=== PATIENT | female | born 1990 | race Caucasian/White ===

== ENCOUNTER → 2016-09-28 | Day surgery (SDC) | payer BC, OTHER | LOC: RAD 13:31 | PROVIDERS: ATTEND Orthopaedic Surgery | DX: M25.532 Pain in left wrist (principal); Z53.9 Procedure and treatment not carried out, unspecified reason ==

== ENCOUNTER → 2016-10-04 | Day surgery (SDC) | payer BC, OTHER | LOC: RAD 13:20 | PROVIDERS: ATTEND Orthopaedic Surgery | PROC: BP0 Imaging, Non-Axial Upper Bones, Plain Radiography (ICD-10-PCS; principal; 2016-10-04) | DX: M25.532 Pain in left wrist (principal) | CPT/HCPCS: 73222; 73115; 77002; A9576 ==

== ENCOUNTER → 2016-10-15 | Emergency (ER) | payer BC, OTHER ==
[~2016-10-15] MED LIST: LEVETIRACETAM 1000 MG/NACL-ISO 100 ML IV ONE
[2016-10-15 20:06] LABS: ABSOLUTE BASOPHILS # (AUTO) 0.1 10^3/uL (0.0-0.2); ABSOLUTE EOSINOPHILS # (AUTO) 0.1 10^3/uL (0.0-0.6); ABSOLUTE LYMPHOCYTES (AUTO) 1.5 10^3/uL (0.5-4.7); ABSOLUTE MONOCYTES (AUTO) 0.6 10^3/uL (0.1-1.4); ABSOLUTE NEUT (AUTO) 7.3 10^3/uL (1.7-8.2); BASOPHILS % (AUTO) 0.7 % (0-2); EOSINOPHILS % (AUTO) 0.8 % (0-6); HEMATOCRIT 41.5 % (36.0-47.0); HEMOGLOBIN 14.1 g/dL (12.0-15.5); HGB HCT DIFFERENCE 0.8; LYMPHOCYTES % (AUTO) 15.5 % (13-45); MEAN CORPUSCULAR VOLUME 91 fl (80-97); MONOCYTES % (AUTO) 6.6 % (3-13); RED BLOOD COUNT 4.55 10^6/uL (3.72-5.28); RED CELL DISTRIBUTION WIDTH 13.1 % (11.5-14.0); SEGMENTED NEUTROPHILS % (AUTO) 76.4 % (42-78); WHITE BLOOD COUNT 9.5 10^3/uL (4.0-10.5)
[2016-10-15 20:29] LABS: ALANINE AMINOTRANSFERASE 27 U/L (9-52); ALBUMIN 3.5 g/dL (3.5-5.0); ALKALINE PHOSPHATASE 43 U/L (38-126); ANION GAP 9 (5-19); ASPARTATE AMINO TRANSFERASE 18 U/L (14-36); BILIRUBIN,TOTAL 0.9 mg/dL (0.2-1.3); BLOOD UREA NITROGEN 9 mg/dL (7-20); CALCIUM 9.3 mg/dL (8.4-10.2); CARBON DIOXIDE 29 mmol/L (22-30); CHLORIDE 104 mmol/L (98-107); CREATININE RESULT 0.89 mg/dL (0.52-1.25); GLUCOSE 82 mg/dL (75-110); POTASSIUM 4.1 mmol/L (3.6-5.0); SODIUM 142.3 mmol/L (137-145); TOTAL PROTEIN 6.3 g/dL (6.3-8.2)
[2016-10-15 20:30] LABS: ALCOHOL < 10 mg/dL (NONE DETECTED)
--- NOTE | 2016-10-15 21:43 | ER Document Report ---
ED Seizure - General Mode of Arrival: Medic Information source: Relative - spouse TRAVEL OUTSIDE OF THE U.S. IN LAST 30 DAYS: No - HPI Patient complains to provider of: Other - see HPI note <LATRICIA CHAVIRA - Last Filed: 10/16/16 00:19> <BHAVNA RODRIGUEZ - Last Filed: 10/16/16 01:48> - General Chief Complaint: Seizure Stated Complaint: SEIZURE Notes: Patient is a 26-year-old female presenting to the emergency department for multiple seizure activity per her . Patient's states that the patient has had multiple seizure activity over the last couple of days. Patient 's states that she is on multiple seizure medications. Patient's states that she usually has this type of activity during her menstrual cycle; patient just ended her menstrual cycle. Patient states that the patient has been treated at [facility] for her seizure activity. Patient is allergic to tramadol. (LATRICIA CHAVIRA) - Related Data Allergies/Adverse Reactions: tramadol [Tramadol] Allergy (Verified 10/15/16 19:39) Seizures Past Medical History - General Information source: Relative - spouse - Social History Smoking Status: Unknown if Ever Smoked Family History: Malignancy, Other Neurological Medical History: Reports: Hx Migraine, Hx Seizures Psychiatric Medical History: Reports: Hx Depression Past Surgical History: Reports: Hx Oral Surgery - wisdom teeth - Immunizations Immunizations up to date: Yes Hx Diphtheria, Pertussis, Tetanus Vaccination: Yes <LATRICIA CHAVIRA - Last Filed: 10/16/16 00:19> Review of Systems - Review of Systems Constitutional: No symptoms reported EENT: No symptoms reported Cardiovascular: No symptoms reported Respiratory: No symptoms reported Gastrointestinal: No symptoms reported Genitourinary: No symptoms reported Female Genitourinary: No symptoms reported Musculoskeletal: No symptoms reported Skin: No symptoms reported Hematologic/Lymphatic: No symptoms reported Neurological/Psychological: See HPI -: Yes All other systems reviewed and negative <LATRICIA CHAVIRA - Last Filed: 10/16/16 00:19> Physical Exam - Vital signs Interpretation: Normal - General General appearance: Appears well, Alert - HEENT Head: Normocephalic, Atraumatic Eyes: Normal Pupils: PERRL - Respiratory Respiratory status: No respiratory distress Chest status: Nontender Breath sounds: Normal Chest palpation: Normal - Cardiovascular Rhythm: Regular Heart sounds: Normal auscultation Murmur: No - Abdominal Inspection: Normal Distension: No distension Bowel sounds: Normal Tenderness: Nontender Organomegaly: No organomegaly - Back Back: Normal, Nontender - Extremities General upper extremity: Normal inspection, Nontender, Normal color, Normal ROM , Normal temperature General lower extremity: Normal inspection, Nontender, Normal color, Normal ROM , Normal temperature, Normal weight bearing. No: Brian's sign - Neurological Neuro grossly intact: Yes Cognition: Normal Orientation: AAOx4 Marta Coma Scale Eye Opening: To Voice Marta Coma Scale Verbal: Oriented [place] Coma Scale Motor: Obeys Commands [place] Coma Scale Total: 14 Speech: Normal Motor strength normal: LUE, RUE, LLE, RLE Sensory: Normal - Psychological Associated symptoms: Normal affect, Normal mood - Skin Skin Temperature: Warm Skin Moisture: Dry Skin Color: Normal <BHAVNA RODRIGUEZ - Last Filed: 10/16/16 01:48> Course - Laboratory Result Diagrams: 10/15/16 19:55 10/15/16 19:55 - Consults [facility] transfer center Time consulted: 20:40 Dr. Braden Time consulted: 20:44 [facility] Time consulted: 20:46 Dr. Barber Time consulted: 20:56 Dr. Mccullough Time consulted: 21:15 <LATRICIA CHAVIRA - Last Filed: 10/16/16 00:19> - Laboratory Result Diagrams: 10/15/16 19:55 10/15/16 19:55 <BHAVNA RODRIGUEZ - Last Filed: 10/16/16 01:48> - Re-evaluation Re-evalutation: 10/15/16 22:11 Patient is a 26-year-old female who comes in with 2 days of increased seizure activity per her . Patient has been noted to have episodes of shaking which she arouses from easily and is able to answer questions and follow commands immediately afterwards. Patient was given Valium prior to arrival by EMS and Ativan here in the emergency department. She is been loaded with Keppra IV. I have not given patient any by mouth medications due to her intermittent seizure activity. Patient was discussed with [facility] but they do not have neurology on-call. Patient was discussed with [facility] where the patient has been before. They except for for transfer to further evaluate her symptoms. Of note, the patient was supposed to have her surgery in the morning. I have called Dr. Mccullough to tell him that she is being transferred to [facility]. 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 (LATRICIA CHAVIRA) Dr. Braden Reason for consultation: 10/15/16 20:[address] Braden with [facility], they are not taking any calls. (LATRICIA CHAVIRA) [facility] [[email or web address]] Reason for consultation: 10/15/16 20:46 Contacted [facility], they'll contact neurology. 10/15/16 23:01 (LATRICIA CHAVIRA) Dr. Barber Reason for consultation: 10/15/16 20:56 Callback from [facility] neurology, spoke with Dr. Barber about patient. Patient will be transferred ED to ED. (LATRICIA CHAVIRA) Dr. Mccullough Reason for consultation: 10/15/16 21:15 Patient has a wrist surgery tomorrow with Dr. Mccullough, notified him that the patient will be transferred to [facility] neurology and will not be in town for her surgery. 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 (BHAVNA RODRIGUEZ) Scribe Documentation - Scribe Written by Scribe:: Latricia Chavira 10/16/16 00:31 acting as scribe for :: [facility]aze <LATRICIA CHAVIRA - Last Filed: 10/16/16 00:19>
--- NOTE | 2016-10-16 00:04 | EKG REPORT ---
SEVERITY:- OTHERWISE NORMAL ECG - SINUS RHYTHM BORDERLINE RIGHT AXIS DEVIATION : Confirmed by: Jerzy Yancey 16-Oct-2016 00:04:20
== END | disposition short-term general hospital (02) ==
LOC: ER 19:11
DX: G40.804 Other epilepsy, intractable, without status epilepticus (principal)
CPT/HCPCS: 36415; 80053; 80307; 82550; 82553; 82962; 84703; 85025; 93005; 93010; 96365; 96375; 99291; 99292

== ENCOUNTER 2016-11-06 10:08 | Day surgery (SDC) | payer BC, OTHER ==
[~2016-11-06 10:08] MED LIST changes: +CEFAZOLIN 2 GM/D5W RTU 2 GM/50 ML RTUPB IV PRN; +LACTATED RINGERS 1000 ML IV PRN; -LEVETIRACETAM 1000 MG/NACL-ISO 100 ML IV ONE; +LIDOCAINE 0.5% INJ-PF (5 MG/ML) 50 ML SDV SUBCUT PRN
[2016-11-06] MEDS ORDERED: LIDOCAINE 2% INJ-PF (20 MG/ML) 10 ML AMPUL ONE ×3 (10:23→10:25)
[2016-11-06] MEDS ORDERED: DEXAMETHASONE SOD PHOSPHATE INJ 4 MG/1 ML VIAL ONE ×2 (10:23→10:25)
[2016-11-06] MEDS ORDERED: GLYCOPYRROLATE INJ 0.4 MG/2 ML VIAL ONE (10:23)
[2016-11-06] MEDS ORDERED: ONDANSETRON HCL INJ/PF 4 MG/2 ML SDV ONE ×3 (10:23→10:25)
[2016-11-06] MEDS ORDERED: METOCLOPRAMIDE HCL INJ/PF 10 MG/2 ML SDV ONE (10:25)
[2016-11-06] MEDS ORDERED: SUCCINYLCHOLINE CHLORIDE INJ 200 MG/10 ML VIAL ONE (10:25)
[2016-11-06] MEDS ORDERED: BUPIVACAINE HCL 0.5 % INJ/PF 30 ML SDV ONE (10:53)
[2016-11-06] MEDS ORDERED: PROPOFOL INJ 200 MG/20 ML VIAL IV ONE (14:01)
[2016-11-06] MEDS ORDERED: DEXMEDETOMIDINE INJ 80 MCG/20 ML VIAL IV ONE (14:01)
[2016-11-06] MEDS ORDERED: FENTANYL CITRATE INJ/PF 250 MCG/5 ML AMPULE ONE (14:01)
[2016-11-06] MEDS ORDERED: MIDAZOLAM 2 MG/2 ML INJ ONE (14:01)
[2016-11-06] MEDS ORDERED: MORPHINE SULFATE 10 MG/ML INJ IV PRN ×2 (14:45→16:04)
[2016-11-06] MEDS ORDERED: PROMETHAZINE HCL INJ 25 MG/1 ML VIAL IV PRN ×2 (14:45)
[2016-11-06] MEDS ORDERED: DIPHENHYDRAMINE HCL 50 MG/ML VIAL IV PRN (14:45)
[2016-11-06] MEDS ORDERED: MEPERIDINE HCL/PF INJ 25 MG/1 ML DISP.SYRIN IV PRN (14:45)
[2016-11-06] MEDS ORDERED: FENTANYL CITRATE INJ/PF 100 MCG/2 ML AMPUL IV PRN ×3 (14:45)
[2016-11-06] MEDS ORDERED: OXYCODONE-ACETAMINOPHEN 5-325 MG TABLET PO PRN ×3 (14:45→16:04)
[2016-11-06] MEDS ORDERED: ONDANSETRON HCL INJ/PF 4 MG/2 ML SDV IV PRN (16:04)
--- NOTE | 2016-11-06 16:11 | Operative Report ---
Operative Report DATE OF SURGERY: 11/06/16 PREOPERATIVE DIAGNOSIS: Left Wrist Radial Sided TFCC Tear POSTOPERATIVE DIAGNOSIS: Same OPERATION: Left Wrist Arthroscopy w/ Debridement TFCC Tear SURGEON: CHARLES DELVALLE ANESTHESIA: GA COMPLICATIONS: None ESTIMATED BLOOD LOSS: Same PROCEDURE: Indication for above procedure: 26-year-old female who has been seeing me for long-standing left wrist pain. We attempted conservative measures including injections, activity modification and immobilization without resolution of her symptoms. At that point the joint decision was made to proceed with operative intervention. Procedure In Detail: Patient was seen and evaluated in the preoperative holding area. The upper extremity was initialized and marked. Patient received 2g of Ancef IV for bacterial prophylaxis. Patient was taken back to the operative room where transferred to the operative table and placed under general anesthesia. Once they were adequately anesthetized a nonsterile tourniquet was placed on the upper extremity. A surgical team debriefing was performed ensuring all instrumentation was available, the surgical procedure was discussed with possible concerns reviewed. The upper extremity was prepped with chlorhexidine and alcohol and draped in a sterile fashion. A timeout was done identifying correct patient, procedure and extremity everyone in attendance agree with this and verbalized no concerns. Patient was placed in the [place] wrist tower with 15 pounds of traction. The extremity was exsanguinated the tourniquet was inflated to 250 mmHg. A 3-4 portal was established the arthroscope was introduced into the radiocarpal joint. Via triangulation a 4-5 portal was established. Diagnostic arthroscopy was performed demonstrating no evidence of radial sided pathology with intact radioscaphocapitate ligament, long and short radiolunate ligaments. There was some mild fraying along the radioscapholunate pedicle but no ce disruption. No evidence of degenerative changes of the radiocarpal joint. Diagnostic arthroscopy of the ulnar aspect of the wrist demonstrated intact ulnar carpal ligaments without abnormality. There was evidence of a 5 mm radial sided TFCC tear. Thus I proceeded with examination of the DRUJ under fluoroscopy which demonstrated no evidence of DRUJ instability. Given the lack of instability I do not feel TFCC repair was required. The TFCC was then debrided back to a stable base with a arthroscopic shaver. The edges were smoothed with the use of ablator. There was mild synovitis along the prestyloid recess which was also debrided with the ablator. No degenerative changes of the ulnocarpal articulation were appreciated. No evidence of degenerative changes or signs or symptoms of ulnocarpal abutment. At this point I proceeded with exploration of the midcarpal joint. A radial midcarpal portal was established and the arthroscope introduced into the radiocarpal joint. Via triangulation a ulnar midcarpal portal was established. Exploration of the STT joint demonstrated no evidence of degenerative changes. There is no widening of the scapholunate or lunotriquetral intervals with manipulation or direct visualization. There was mild synovitis along the triquetral hamate articulation but no distinct abnormality was appreciated. A partial synovectomy was then performed with the ablator. The wounds were then closed with interrupted 4-0 nylon suture. 10 mL of 0.5% Marcaine without epinephrine was injected for postoperative pain control. Wound was dressed with 4 x 4's, Xeroform and a well-padded volar resting splint. Tourniquet was deflated. Sponge counts, instrument counts, needle counts counts were correct. Patient was then awoken from anesthesia. Transferred from the operating room table to the operating room stretcher. There was no intraoperative complications patient tolerated procedure well stable to PACU. Postoperative plan: Patient will continue the splint until postoperative follow-up at which point we will proceed with splint off, wound check.
--- NOTE | 2016-11-06 16:11 | PDOC DISCHARGE SUMMARY ---
Discharge Summary (SDC) - Discharge Final Diagnosis: Left Wrist Radial Sided TFCC Tear Date of Surgery: 11/06/16 Discharge Date: 11/06/16 Treatment or Instructions: Schedule Follow Up w/ Dr. Rolando Mccullough @ [facility] for Surgery to be seen in 10-14 days or as scheduled [place]: [place]: [place]: Keep splint clean/dry/intact. Ice and elevate May begin finger range of motion attempting to make full fist. Stool softener of choice when on pain medication. Prescriptions: Oxycodone HCl/Acetaminophen [Percocet 5-325 mg Tablet] 1 - 2 tab PO ASDIR PRN # 30 tablet PRN Reason: Referrals: DOUG MOTA MD [Primary Care Provider] - Discharge Diet: As Tolerated Respiratory Treatments at Home: Deep Breathing/Coughing Discharge Activity: No Lifting Over 10 Pounds, No Lifting/Push/Pulling Report the Following to Your Physician Immediately: Fever over 101 Degrees, Unusual Bleeding, Redness, Swelling, Warmth, Increased Soreness, Numbness, Tingling Sensation
[2016-11-06] MEDS: FENTANYL CITRATE INJ/PF 100 MCG/2 ML AMPUL ONE ×4 (16:18→16:30)
[2016-11-06 18:20] VITALS: BP 98/54
== END 2016-11-06 18:10 | disposition home or self-care (01) ==
LOC: OROUT 10:08
PROVIDERS: ATTEND Orthopaedic Surgery
PROC: 0RBP4ZZ Excision of Left Wrist Joint, Percutaneous Endoscopic Approach (ICD-10-PCS; 2016-11-06)
PROC: 0MQ64ZZ Repair Left Wrist Bursa and Ligament, Percutaneous Endoscopic Approach (ICD-10-PCS; principal; 2016-11-06 12:30)
DX: M24.132 Other articular cartilage disorders, left wrist (principal); M65.832 Other synovitis and tenosynovitis, left forearm; M25.532 Pain in left wrist; G40.909 Epilepsy, unspecified, not intractable, without status epilepticus; Z79.899 Other long term (current) drug therapy; Z88.5 Allergy status to narcotic agent
CPT/HCPCS: 81025; 29846; J2250; J1100; J3010 ×2; J2405; J2704; J3490 ×2; J0690; 1830; J0330; J2765

== ENCOUNTER 2018-07-26 14:47 | Emergency (ER) | payer BC ==
[2018-07-26] MEDS ORDERED: NAPROXEN 250 MG TABLET PO ONE (15:10)
[2018-07-26] MEDS ORDERED: PROCHLORPERAZINE MALEATE 10 MG TABLET PO ONE (15:10)
[2018-07-26] MEDS ORDERED: DIPHENHYDRAMINE HCL 50 MG CAPSULE PO ONE (15:10)
--- NOTE | 2018-07-26 15:14 | ER Document Report ---
ED Medical Screen (RME) - General Chief Complaint: Headache Stated Complaint: HEADACHE Time Seen by Provider: 07/26/18 15:05 Mode of Arrival: Ambulatory Information source: Patient, Relative, [facility] Records Notes: 28-year-old female patient past medical history of migraine headaches which she gets about once a month. This was started yesterday morning. She did try her Imitrex and Ativan which usually helps but did not this time. Headache is primarily right occipitoparietal and some shooting onto the left side. There is no nausea vomiting. There are no neurological deficits. There is no fever. She does take medication for seizure disorder. I have greeted and performed a rapid initial assessment of this patient. A comprehensive ED assessment and evaluation of the patient, analysis of test results and completion of the medical decision making process will be conducted by additional ED providers. TRAVEL OUTSIDE OF THE [place] IN LAST 30 DAYS: No - Related Data Allergies/Adverse Reactions: tramadol [Tramadol] Allergy (Verified 07/26/18 14:48) Seizures Past Medical History - General Information source: Patient, Relative - Social History Cigarette use (# per day): No Chew tobacco use (# tins/day): No Frequency of alcohol use: None Drug Abuse: None Lives with: Spouse/Significant other Family history: Reviewed & Not Pertinent Neurological Medical History: Reports: Hx Migraine, Hx Seizures Psychiatric Medical History: Reports: Hx Depression Past Surgical History: Reports: Hx Oral Surgery - wisdom teeth, Hx Orthopedic Surgery - Wrist surgery - Immunizations Immunizations up to date: Yes Hx Diphtheria, Pertussis, Tetanus Vaccination: Yes Review of Systems - Review of Systems Constitutional: No symptoms reported EENT: No symptoms reported Cardiovascular: No symptoms reported Respiratory: No symptoms reported Gastrointestinal: No symptoms reported Genitourinary: No symptoms reported Female Genitourinary: Last menstrual period - Ended last week Musculoskeletal: No symptoms reported Skin: No symptoms reported Hematologic/Lymphatic: No symptoms reported Neurological/Psychological: Headaches Physical Exam - Vital signs Vitals: Temp Pulse Resp BP Pulse Ox 98.3 F 67 12 112/58 L 99 07/26/18 14:51 07/26/18 14:51 07/26/18 14:51 07/26/18 14:51 07/26/18 14:51 - General General appearance: Appears well In distress: None - This. Uncomfortable, holding her head down slightly and covering her eyes. - HEENT Head: Normocephalic, Atraumatic, Tenderness - There is minimal tenderness to scalp palpation Eyes: Normal Pupils: PERRL Neck: Normal, Supple, Other - There is no posterior cervical muscle palpation tenderness - Respiratory Respiratory status: No respiratory distress Chest palpation: Normal - Cardiovascular Rhythm: Regular Heart sounds: Normal auscultation Murmur: No - Abdominal Inspection: Normal - Back Back: Normal - Extremities General upper extremity: Normal inspection General lower extremity: Normal inspection - Neurological Neuro grossly intact: Yes - Psychological Associated symptoms: Normal affect, Normal mood - Skin Skin Temperature: Warm Skin Moisture: Dry Skin Color: Normal Course - Re-evaluation Re-evalutation: 07/26/18 16:42 The patient received the Naprosyn, Benadryl, and Compazine about 90 minutes ago. She reports her headache is even worse now than before the medications. She states her headache normally resolved with the Imitrex and Ativan. She will be moved to the main ED for further evaluation and management, and CT scan of the head will be done as this headache seems to be much different than her usual headache and not responding to medications. - Vital Signs Vital signs: Temp Pulse Resp BP Pulse Ox 98.3 F 67 12 112/58 L 99 07/26/18 14:51 07/26/18 14:51 07/26/18 14:51 07/26/18 14:51 07/26/18 14:51 Doctor's Discharge - Discharge Clinical Impression: Headache Qualifiers: Headache type: unspecified Headache chronicity pattern: episodic headache Intractability: intractable Qualified Code(s): R51 - Headache Referrals: DOUG MOTA MD [Primary Care Provider] - Follow up as needed
[2018-07-26] MEDS ORDERED: NORMAL SALINE 1000 ML 1,000 ML IV ONE (16:41)
[2018-07-26] MEDS ORDERED: LORAZEPAM INJ 2 MG/1 ML VIAL IV ONE (16:44)
--- NOTE | 2018-07-26 17:14 | ER Document Report ---
ED General - General Chief Complaint: Headache Stated Complaint: HEADACHE Time Seen by Provider: 07/26/18 15:05 Mode of Arrival: Ambulatory Notes: Patient is a 28-year-old female with history of migraines that presents to the emergency department for chief complaint of headache. Patient states that her headache started a few days ago, has been ongoing since then, she states it started in the left side, and now extends to the right, she currently rates it as an 8 out of 10, is associated photophobia, and some vision changes, but not vision loss. She is been taking Tylenol, Advil, Ativan and Imitrex, which have not been significantly helping her headaches so she decided come to the emergency department. She denies being , denies any associated vomiting , syncope, chest pain, abdominal pain, or any other symptoms. Past Medical History: Migraine headaches, seizure disorder Past Surgical History: Wrist surgery, wisdom tooth extraction Social History: Denies tobacco, alcohol or drug use Family History: Reviewed and noncontributory for presenting illness Allergies: Reviewed, see documented allergy list. REVIEW OF SYSTEMS: Other than noted above, the 12 point review of systems was reviewed with the patient and were negative, all pertinent findings are included in the HPI. PHYSICAL EXAMINATION: Vital signs reviewed, nursing noted reviewed. GENERAL: Well-appearing, well-nourished and appears mildly uncomfortable, lying on the bed in a dark room HEAD: Atraumatic, normocephalic. EYES: Eyes appear normal, extraocular movements intact, sclera anicteric, conjunctiva are normal. ENT: nares patent, oropharynx clear without exudates. Moist mucous membranes. NECK: Normal range of motion, supple without lymphadenopathy LUNGS: Breath sounds clear to auscultation bilaterally and equal. No wheezes rales or rhonchi. HEART: Regular rate and rhythm without murmurs ABDOMEN: Soft, nontender, normoactive bowel sounds. No rebound, guarding, or rigidity. No masses appreciated. EXTREMITIES: Nontender, good range of motion, no pitting or edema. NEUROLOGICAL: No focal neurological deficits. Moves all extremities spontaneously Motor and sensory grossly intact on exam. PSYCH: Normal mood, normal affect. SKIN: Warm, Dry, normal turgor, no rashes or lesions noted on exposed skin TRAVEL OUTSIDE OF THE [place] IN LAST 30 DAYS: No - Related Data Allergies/Adverse Reactions: tramadol [Tramadol] Allergy (Verified 07/26/18 14:48) Seizures Past Medical History - General Information source: Patient, Relative - Social History Smoking Status: Never Smoker Cigarette use (# per day): No Chew tobacco use (# tins/day): No Frequency of alcohol use: None Drug Abuse: None Lives with: Spouse/Significant other Family History: Malignancy, Other Patient has suicidal ideation: No Patient has homicidal ideation: No Neurological Medical History: Reports: Hx Migraine, Hx Seizures Renal/ Medical History: Denies: Hx Peritoneal Dialysis Psychiatric Medical History: Reports: Hx Depression Past Surgical History: Reports: Hx Oral Surgery - wisdom teeth, Hx Orthopedic Surgery - Wrist surgery - Immunizations Immunizations up to date: Yes Hx Diphtheria, Pertussis, Tetanus Vaccination: Yes Physical Exam - Vital signs Vitals: Temp Pulse Resp BP Pulse Ox 98.3 F 67 12 112/58 L 99 07/26/18 14:51 07/26/18 14:51 07/26/18 14:51 07/26/18 14:51 07/26/18 14:51 Course - Re-evaluation Re-evalutation: Patient seen and examined vital signs reviewed. Patient was treated with Compazine, naproxen, IV fluids, and Ativan as ordered by the triage provider. Serum hCG testing was ordered, however patient refused saying that she was not . On my evaluation the patient was still having headache, I then added IV magnesium, Toradol, and Decadron. The patient was re-evaluated and was improved, headache resolved Evaluation was most consistent with headache Results were discussed with the patient at this point, after careful consideration I feel that that patient can be discharged from the emergency department, the patient was educated treatments and reasons to return to the emergency department based on their presumed diagnosis as noted above, they were advised to followup with a primary care physician in 2-3 days. Patient was agreeable to plan of care. *Note is created using voice recognition software and may contain spelling, syntax or grammatical errors. - Vital Signs Vital signs: Temp Pulse Resp BP Pulse Ox 98.3 F 67 12 112/58 L 99 07/26/18 14:51 07/26/18 14:51 07/26/18 14:51 07/26/18 14:51 07/26/18 14:51 Discharge - Discharge Clinical Impression: Headache Qualifiers: Headache type: unspecified Headache chronicity pattern: episodic headache Intractability: not intractable Qualified Code(s): R51 - Headache Condition: Stable Disposition: HOME, SELF-CARE Instructions: Headache ([facility]) Additional Instructions: Please return to the emergency department if you have any worsening, or concern of your symptoms. Please return to the emergency department if you develop chest pain, difficulty breathing, severe abdominal pain, or ongoing vomiting. Please follow-up with your primary care physician in 2-3 days and any other recommended physicians. If prescribed, take all medications as directed. If you have any questions or concerns do not hesitate to return the emergency department for evaluation. Referrals: DOUG MOTA MD [Primary Care Provider] - Follow up as needed
[2018-07-26] MEDS ORDERED: METOCLOPRAMIDE HCL INJ/PF 10 MG/2 ML SDV IV ONE (17:33)
[2018-07-26] MEDS ORDERED: MAGNESIUM SULFATE/D5W 1 GM/100 ML RTUPB IV ONE (17:34)
[2018-07-26] MEDS ORDERED: DEXAMETHASONE SOD PHOS INJ 10 MG/1 ML VIAL IV ONE (17:34)
[2018-07-26 20:24] VITALS: BP 107/51
== END 2018-07-26 20:29 | disposition home or self-care (01) ==
LOC: ER 14:47
DX: R51 Headache (principal); H53.149 Visual discomfort, unspecified
CPT/HCPCS: 99284; 96361; 96374; 96375; J2765; J2060; J3475; S0183; J7030; J1100

== ENCOUNTER 2018-11-21 23:46 | Emergency (ER) | payer BC, OTHER ==
--- NOTE | 2018-11-22 00:24 | ER Document Report ---
ED General - General Chief Complaint: Probable Seizure Stated Complaint: SEIZURES Time Seen by Provider: 11/22/18 00:04 Primary Care Provider: DOUG MOTA MD [Primary Care Provider] - Follow up as needed Notes: Patient is a 28-year-old female with a history of seizures who presents after having seizures tonight. They said over the last couple days he does have been more intense. He said today she had 4 seizures but they were back to back. Is been says that her seizures are very short usually occur in spurts. Patient says that her seizures are usually well controlled. She used to get migraines that would trigger the seizures however recently she has not been having migraines and she will just have a random seizure. She is followed by Dr. Flakito Tate at [facility]. She currently takes 2500 mg of Keppra in the morning and 2500 mg at night. She takes 200 mg of lamotrigine in the morning and 300 mg at night. No recent changes in her medications. No recent head trauma. No other complaints at this time. says that patient's previous EEGs have been negative. TRAVEL OUTSIDE OF THE [place] IN LAST 30 DAYS: No - Related Data Allergies/Adverse Reactions: tramadol [Tramadol] Allergy (Verified 07/26/18 14:48) Seizures Past Medical History - Social History Smoking Status: Never Smoker Chew tobacco use (# tins/day): No Frequency of alcohol use: None Drug Abuse: None Family History: Malignancy, Other Patient has suicidal ideation: No Patient has homicidal ideation: No Neurological Medical History: Reports: Hx Migraine, Hx Seizures Renal/ Medical History: Denies: Hx Peritoneal Dialysis Psychiatric Medical History: Reports: Hx Depression Past Surgical History: Reports: Hx Oral Surgery - wisdom teeth, Hx Orthopedic Surgery - Wrist surgery - Immunizations Immunizations up to date: Yes Hx Diphtheria, Pertussis, Tetanus Vaccination: Yes Review of Systems - Review of Systems Notes: My Normal Review Basic REVIEW OF SYSTEMS: CONSTITUTIONAL : Denies fever, chills, or sweats. Denies recent illness. RESPIRATORY: Denies cough, cold, or chest congestion. Denies shortness of breath, difficulty breathing, or wheezing. GASTROINTESTINAL: Denies abdominal pain. Denies nausea, vomiting, or diarrhea. Denies constipation. Last BM: GENITOURINARY: Denies difficulty urinating, painful urination, burning, frequency, or blood in urine. MUSCULOSKELETAL: Denies neck or back pain or joint pain or swelling. SKIN: Denies rash or skin lesions. NEUROLOGICAL: Had a seizure. denies headache. Denies weakness or paralysis or loss of use of either side. Denies problems with gait or speech. Denies sensory or motor loss. PSYCHIATRIC: Denies anxiety or stress or depression. ALL OTHER SYSTEMS REVIEWED AND NEGATIVE. Physical Exam - Vital signs Vitals: Temp Pulse Resp BP Pulse Ox 98.3 F 80 18 104/62 100 11/21/18 23:59 11/21/18 23:59 11/21/18 23:59 11/21/18 23:59 11/21/18 23:59 - Notes Notes: General Appearance: Well nourished, alert, cooperative, no acute distress, no obvious discomfort. Well-appearing. Vitals: reviewed, See vital signs table. Head: no swelling or tenderness to the head Eyes: PERRL, EOMI, Conjuctiva clear Mouth: No decreasd moisture. No tongue biting. Throat: No tonsillar inflammation, No airway obstruction, No lymphadenopathy Neck: Supple, no neck tenderness, No thyromegaly Lungs: No wheezing, No rales, No rhonci, No accessory muscle use, good air exchange bilaterally. Heart: Normal rate, Regular rythm, No murmur, no rub Abdomen: Normal BS, soft, No rigidity, No abdominal tenderness, No guarding, no rebound, no abdominal masses, no organomegaly Extremities: strength 5/5 in all extremities, good pulses in all extremities, no swelling or tenderness in the extremities, no edema. Skin: Multiple scars in both arms from self cutting. Neuro: speech clear, oriented x 3, normal affect, responds appropriately to questions. Renal nerves II through XII are intact. Patient moves all extremities without difficulty. Distal sensation intact. Course - Re-evaluation Re-evalutation: 11/22/18 03:07 I spoke with the covering neurologist at [facility], Dr. Mcknight. He says he is going to review Dr. Tate's notes and and also speak with his attending and call me back. 11/22/18 03:23 She has had another seizure lasting proximal 23 seconds that stopped as well as walking up to the patient. Patient is currently postictal. She had no loss of bladder control. No tongue biting. 11/22/18 03:[address] Mcknight. He discussed the case with his attending neurologist and they want her transferred to [facility] to do continuous EEG monitoring. He states that this time he would not change her medications and just do her usual seizure medications. He says if she has seizures lasting less than a minute not to intervene with benzos. If lasting more than a minute to give benzodiazepines to help prevent further seizure activity. Accepting attending neurologist is Dr. Loren Kevin. - Vital Signs Vital signs: Temp Pulse Resp BP Pulse Ox 98.3 F 80 18 104/62 100 11/21/18 23:59 11/21/18 23:59 11/21/18 23:59 11/21/18 23:59 11/21/18 23:59 - Laboratory Result Diagrams: 11/22/18 00:35 11/22/18 00:35 Laboratory results interpreted by me: 11/22/18 03:00 Urine Ketones 20 H Ur Leukocyte Esterase TRACE H Discharge - Discharge Clinical Impression: Seizure Condition: Stable Disposition: [facility] Referrals: DOUG MOTA MD [Primary Care Provider] - Follow up as needed
[2018-11-22 00:46] LABS: ABSOLUTE BASOPHILS # (AUTO) 0.1 10^3/uL (0.0-0.2); ABSOLUTE EOSINOPHILS # (AUTO) 0.1 10^3/uL (0.0-0.6); ABSOLUTE LYMPHOCYTES (AUTO) 2.1 10^3/uL (0.5-4.7); ABSOLUTE MONOCYTES (AUTO) 0.4 10^3/uL (0.1-1.4); ABSOLUTE NEUT (AUTO) 3.7 10^3/uL (1.7-8.2); BASOPHILS % (AUTO) 0.8 % (0-2); EOSINOPHILS % (AUTO) 1.2 % (0-6); HEMATOCRIT 39.5 % (36.0-47.0); LYMPHOCYTES % (AUTO) 33.1 % (13-45); MEAN CORPUSCULAR HEMOGLOBIN 32.2 pg (27.0-33.4); MEAN CORPUSCULAR HGB CONC 35.5 g/dL (32.0-36.0); MEAN CORPUSCULAR VOLUME 91 fl (80-97); MONOCYTES % (AUTO) 6.9 % (3-13); PLATELET COUNT 216 10^3/uL (150-450); RED BLOOD COUNT 4.36 10^6/uL (3.72-5.28); RED CELL DISTRIBUTION WIDTH 12.6 % (11.5-14.0); TOTAL CELLS COUNTED % (AUTO) 100 %; WHITE BLOOD COUNT 6.4 10^3/uL (4.0-10.5)
[2018-11-22 00:59] LABS: ANION GAP 10 (5-19); BLOOD UREA NITROGEN 10 mg/dL (7-20); CALCIUM 9.1 mg/dL (8.4-10.2); CARBON DIOXIDE 27 mmol/L (22-30); CHLORIDE 102 mmol/L (98-107); GLUCOSE 81 mg/dL (75-110); POTASSIUM 3.7 mmol/L (3.6-5.0); SODIUM 138.7 mmol/L (137-145)
[2018-11-22] MEDS ORDERED: LORAZEPAM INJ 2 MG/1 ML VIAL IV ONE (01:13)
[2018-11-22] MEDS ORDERED: LORAZEPAM INJ 2 MG/1 ML VIAL ONE (01:15)
[2018-11-22 03:13] LABS: APPEARANCE,URINE CLEAR; BILIRUBIN,URINE NEGATIVE (NEGATIVE); COLOR,URINE YELLOW; GLUCOSE, URINE NEGATIVE (NEGATIVE); KETONES,URINE 20 mg/dL (NEGATIVE); LEUKOCYTE ESTERASE,URINE TRACE (NEGATIVE); NITRITE,URINE NEGATIVE (NEGATIVE); PROTEIN,URINE NEGATIVE (NEGATIVE); URINE SPECIFIC GRAVITY 1.012; UROBILINOGEN,URINE NEGATIVE mg/dL (<2.0)
[2018-11-22 07:34] VITALS: BP 98/53
== END 2018-11-22 07:35 | disposition short-term general hospital (02) ==
LOC: ER 23:46
DX: R56.9 Unspecified convulsions (principal); Z79.899 Other long term (current) drug therapy
CPT/HCPCS: 99285; 96374; 36415; 84703; 85025; 80048; 81001; J2060

== ENCOUNTER 2019-05-17 10:22 | Emergency (ER) | payer OTHER, BC ==
[2019-05-17] MEDS ORDERED: NORMAL SALINE 1000 ML 1,000 ML IV ONE (11:00)
[2019-05-17] MEDS ORDERED: DIPHENHYDRAMINE HCL 50 MG/ML VIAL IV ONE (11:00)
[2019-05-17] MEDS ORDERED: METOCLOPRAMIDE HCL INJ/PF 10 MG/2 ML SDV IV ONE (11:00)
[2019-05-17] MEDS ORDERED: KETOROLAC TROMETHAMINE INJ/PF 30 MG/1 ML SDV IV ONE (11:01)
--- NOTE | 2019-05-17 11:04 | ER Document Report ---
ED Medical Screen (RME) - General Chief Complaint: Headache Stated Complaint: HEADACHE Time Seen by Provider: 05/17/19 10:52 Primary Care Provider: DOUG MOTA MD [Primary Care Provider] - Follow up as needed Notes: Patient is a 29-year-old female with history of migraines and seizures who presents to the emergency department for migraine. Patient states she has been battling a migraine for 7 days. Patient reports she has taken Ativan, Imitrex, Tylenol, Excedrin, Benadryl without any relief. Patient states her headache is located throughout her whole head and radiates to the right side of her face. Patient reports nausea and blurred vision. Patient states she has fallen a few times due to the dizziness. Patient denies injury. Has been reports that on Saturday she did pass out for a few seconds but when she fell she landed on a pile of close. He denies head injury. Patient does take Keppra for seizures. Has been reports multiple grand mal seizures on Saturday. Patient currently reports this is 1 of the worst migraines that she has had. Patient denies vomiting. TRAVEL OUTSIDE OF THE [place] IN LAST 30 DAYS: No - Related Data Allergies/Adverse Reactions: tramadol [Tramadol] Allergy (Verified 05/17/19 10:23) Seizures Past Medical History - Social History Chew tobacco use (# tins/day): No Frequency of alcohol use: Rare Drug Abuse: None Family history: Reviewed & Not Pertinent Neurological Medical History: Reports: Hx Migraine, Hx Seizures Renal/ Medical History: Denies: Hx Peritoneal Dialysis Psychiatric Medical History: Reports: Hx Depression Past Surgical History: Reports: Hx Oral Surgery - wisdom teeth, Hx Orthopedic Surgery - Wrist surgery - Immunizations Immunizations up to date: Yes Hx Diphtheria, Pertussis, Tetanus Vaccination: Yes Physical Exam - Vital signs Vitals: Temp Pulse Resp BP Pulse Ox 98.4 F 72 13 102/72 100 05/17/19 10:28 05/17/19 10:28 05/17/19 10:28 05/17/19 10:28 05/17/19 10:28 - HEENT Head: Normocephalic Eyes: Normal Extraocular movements intact: Yes Eyelashes: Normal Pupils: PERRL - Respiratory Respiratory status: No respiratory distress Chest status: Nontender Breath sounds: Normal Chest palpation: Normal - Cardiovascular Rhythm: Regular Heart sounds: Normal auscultation, S1 appreciated, S2 appreciated Course - Re-evaluation Re-evalutation: 05/17/19 11:04 I have greeted and performed a rapid initial assessment of this patient. A comprehensive ED assessment and evaluation of the patient, analysis of test results and completion of the medical decision making process will be conducted by additional ED providers. - Vital Signs Vital signs: Temp Pulse Resp BP Pulse Ox 98.4 F 72 13 102/72 100 05/17/19 10:28 05/17/19 10:28 05/17/19 10:28 05/17/19 10:28 05/17/19 10:28 Doctor's Discharge - Discharge Referrals: DOUG MOTA MD [Primary Care Provider] - Follow up as needed
[2019-05-17 11:38] LABS: ABSOLUTE EOSINOPHILS # (AUTO) 0.3 10^3/uL (0.0-0.6); ABSOLUTE MONOCYTES (AUTO) 0.4 10^3/uL (0.1-1.4); BASOPHILS % (AUTO) 0.8 % (0-2); EOSINOPHILS % (AUTO) 4.5 % (0-6); HEMATOCRIT 47.9 % (36.0-47.0); HEMOGLOBIN 16.5 g/dL (12.0-15.5); LYMPHOCYTES % (AUTO) 34.5 % (13-45); MEAN CORPUSCULAR HEMOGLOBIN 31.6 pg (27.0-33.4); MEAN CORPUSCULAR HGB CONC 34.5 g/dL (32.0-36.0); MEAN CORPUSCULAR VOLUME 92 fl (80-97); MONOCYTES % (AUTO) 7.5 % (3-13); PLATELET COUNT 217 10^3/uL (150-450); RED BLOOD COUNT 5.23 10^6/uL (3.72-5.28); RED CELL DISTRIBUTION WIDTH 12.6 % (11.5-14.0); SEGMENTED NEUTROPHILS % (AUTO) 52.7 % (42-78); TOTAL CELLS COUNTED % (AUTO) 100 %; WHITE BLOOD COUNT 5.7 10^3/uL (4.0-10.5)
[2019-05-17 11:57] LABS: ALBUMIN 4.6 g/dL (3.5-5.0); ALKALINE PHOSPHATASE 50 U/L (38-126); ANION GAP 9 (5-19); ASPARTATE AMINO TRANSFERASE 22 U/L (14-36); BILIRUBIN,DIRECT 0.3 mg/dL (0.0-0.4); BILIRUBIN,TOTAL 0.7 mg/dL (0.2-1.3); BLOOD UREA NITROGEN 13 mg/dL (7-20); CALCIUM 10.1 mg/dL (8.4-10.2); CARBON DIOXIDE 30 mmol/L (22-30); CHLORIDE 104 mmol/L (98-107); GLUCOSE 85 mg/dL (75-110); POTASSIUM 4.8 mmol/L (3.6-5.0); TOTAL PROTEIN 7.6 g/dL (6.3-8.2)
--- NOTE | 2019-05-17 12:08 | RADIOLOGY REPORT (SQ) ---
EXAM DESCRIPTION: CT HEAD WITHOUT COMPLETED DATE/TIME: 05/17/2019 11:54 am REASON FOR STUDY: Migraine, reports worst headachce, + seizure COMPARISON: 2014 TECHNIQUE: Axial images acquired through the brain without intravenous contrast. Images reviewed wi th bone, brain and subdural windows. Additional sagittal and coronal reconstructions were generated. Images stored on PACS. All CT scanners at this facility use dose modulation, iterative reconstruction, and/or weight based d osing when appropriate to reduce radiation dose to as low as reasonably achievable (ALARA). [facility]: Dose Right [facility]: CareDose [facility]: Dose Right [facility]: Teradose 4D [facility]: Individual Digital RADIATION DOSE: CT Rad equipment meets quality standard of care and radiation dose reduction techniq ues were employed. CTDIvol: 53.2 mGy. DLP: 884 mGy-cm. mGy. LIMITATIONS: None. FINDINGS: VENTRICLES: Normal size and contour. CEREBRUM: No masses. No hemorrhage. No midline shift. No evidence for acute infarction. Normal gra y/white matter differentiation. No areas of low density in the white matter. CEREBELLUM: No masses. No hemorrhage. No alteration of density. No evidence for acute infarction. EXTRAAXIAL SPACES: No fluid collections. No masses. ORBITS AND GLOBE: No intra- or extraconal masses. Normal contour of globe without masses. CALVARIUM: No fracture. PARANASAL SINUSES: Chronic appearing left maxillary mucous retention cyst. SOFT TISSUES: No mass or hematoma. OTHER: No other significant finding. IMPRESSION: No acute intracranial abnormality. EVIDENCE OF ACUTE STROKE: NO. COMMENT: Quality ID # [id number]: Final reports with documentation of one or more dose reduction techniques (e.g., Automated exposure control, adjustment of the mA and/or kV according to patient size, use of iterative reconstruction technique) TECHNICAL DOCUMENTATION: JOB ID: [id number] [employer]- All Rights Reserved Reading location - IP/workstation name: [email or web address]
[2019-05-17] MEDS ORDERED: ONDANSETRON ODT 4 MG TAB (6 TAB/ER DISP) PO PRN (13:14)
--- NOTE | 2019-05-17 13:14 | ER Document Report ---
ED General - General Chief Complaint: Headache Stated Complaint: HEADACHE Time Seen by Provider: 05/17/19 10:52 Primary Care Provider: DOUG MOTA MD [Primary Care Provider] - Follow up as needed TRAVEL OUTSIDE OF THE [place] IN LAST 30 DAYS: No - HPI Notes: Patient is a 29-year-old female who presents to the emergency department for evaluation of headaches. She has a history of migraines. She has a history of seizure disorder as well. She is had increased seizures over the last week. She has been well controlled on Lamictal and Keppra. Recently she was diagnosed with pneumonia, treated with amoxicillin and doxycycline. She had several small seizures in the last week, but according to significant other has returned to baseline. She complains of a frontal headache. She rates it currently a 9 out of 10. Is worsened by bright lights and loud noises. Nothing seems to make it better, including multiple medications at home. She does have some significant associated nausea with a few episodes of emesis. - Related Data Allergies/Adverse Reactions: tramadol [Tramadol] Allergy (Verified 05/17/19 10:23) Seizures Past Medical History - General Information source: Patient - Social History Smoking Status: Never Smoker Chew tobacco use (# tins/day): No Frequency of alcohol use: Rare Drug Abuse: None Family History: Malignancy, Other Patient has suicidal ideation: No Patient has homicidal ideation: No Neurological Medical History: Reports: Hx Migraine, Hx Seizures Renal/ Medical History: Denies: Hx Peritoneal Dialysis Psychiatric Medical History: Reports: Hx Depression Past Surgical History: Reports: Hx Oral Surgery - wisdom teeth, Hx Orthopedic Surgery - Wrist surgery - Immunizations Immunizations up to date: Yes Hx Diphtheria, Pertussis, Tetanus Vaccination: Yes Review of Systems - Review of Systems Constitutional: No symptoms reported EENT: No symptoms reported Cardiovascular: No symptoms reported Respiratory: No symptoms reported Gastrointestinal: See HPI Female Genitourinary: No symptoms reported Musculoskeletal: No symptoms reported Skin: No symptoms reported Neurological/Psychological: See HPI Physical Exam - Vital signs Vitals: Temp Pulse Resp BP Pulse Ox 98.4 F 72 13 102/72 100 05/17/19 10:28 05/17/19 10:28 05/17/19 10:28 05/17/19 10:28 05/17/19 10:28 - Notes Notes: Is a pleasant 29-year-old female who appears her stated age in no acute distress. She is asleep when I enter the room. She has a towel over her eyes. Vital signs reviewed, please refer to chart. Head is normocephalic, atraumatic. Pupils equal round, reactive to light. Neck is supple without meningismus. Oral mucosa is moist, pharynx is without erythema or exudate. Heart is regular rate and rhythm. Lungs are clear to auscultation bilaterally. Abdomen is soft, nontender, normoactive bowel sounds throughout. Extremities without cyanosis, clubbing. Posterior calves are nontender. Peripheral pulses are equal. Skin is warm and dry. Patient is awake, alert, neurological exam is nonfocal. Course - Re-evaluation Re-evalutation: 05/17/19 13:10 Patient presents emergency department for evaluation. She has a known history of seizure disorder. She Bienvenido has a call into her neurologist. Her laboratory investigations failed to reveal any significant abnormality. She had significant improvement in her symptoms after migraine cocktail and IV fluids. Her CT scan was unremarkable. At this point I will then send her home. I will send her home with some Zofran for nausea. She is to continue her home medications as prescribed. She is to follow-up with neurology, return to the ED with worsening or new concerning symptoms of any sort. - Vital Signs Vital signs: Temp Pulse Resp BP Pulse Ox 98.4 F 72 13 102/72 100 05/17/19 10:28 05/17/19 10:28 05/17/19 10:28 05/17/19 10:28 05/17/19 10:28 - Laboratory Result Diagrams: 05/17/19 11:13 05/17/19 11:13 Laboratory results interpreted by me: 05/17/19 11:13 Hgb 16.5 H Hct 47.9 H - Diagnostic Test Radiology reviewed: Reports reviewed Radiology results interpreted by me: 05/17/19 13:[address] 05/17/19 11:01 IMPRESSION: No acute intracranial abnormality. EVIDENCE OF ACUTE STROKE: NO. Discharge - Discharge Clinical Impression: Migraine headache without aura Qualifiers: Status migrainosus presence: without status migrainosus Intractability: not intractable Qualified Code(s): G43.009 - Migraine without aura, not intractable, without status migrainosus Condition: Stable Disposition: HOME, SELF-CARE Instructions: Antinausea Medication ([facility]), Headache ([facility]), Toradol Injection ([facility]) Additional Instructions: Rest. Stay well-hydrated. Zofran as needed for nausea. Follow-up with your neurologist this week. Return to the emergency department with worsening or new concerning symptoms of any sort. Referrals: DOUG MOTA MD [Primary Care Provider] - Follow up as needed
[2019-05-17 13:27] VITALS: BP 94/56
== END 2019-05-17 13:28 | disposition home or self-care (01) ==
LOC: ER 10:22
DX: G43.009 Migraine without aura, not intractable, without status migrainosus (principal); G40.909 Epilepsy, unspecified, not intractable, without status epilepticus; Z79.899 Other long term (current) drug therapy; R11.2 Nausea with vomiting, unspecified; Z88.5 Allergy status to narcotic agent
CPT/HCPCS: 99284; 96361; 96374; 96375; 36415; 85025; 80053; 70450; J1200; J1885; J2765; J7030